=== PATIENT | male | born 1960 | race Caucasian/White ===

== ENCOUNTER 2022-08-12 16:27 | Outpatient (CLI) | payer BC, SELFPAY | END 2022-08-12 16:28 | disposition home or self-care (01) | PROVIDERS: PCP Family Medicine; Visit Provider Family Medicine | DX: E55.9 Vitamin D deficiency, unspecified (principal); E78.5 Hyperlipidemia, unspecified; I10 Essential (primary) hypertension; R30.0 Dysuria; Z12.5 Encounter for screening for malignant neoplasm of prostate; E11.9 Type 2 diabetes mellitus without complications | CPT/HCPCS: 80048; 80061; 84153 ==

== ENCOUNTER 2023-09-20 09:51 | Outpatient (CLI) | payer BC, SELFPAY | END 2023-09-20 09:52 | disposition home or self-care (01) | PROVIDERS: PCP Family Medicine; Visit Provider Family Medicine | DX: Z00.00 Encounter for general adult medical examination without abnormal findings (principal); E55.9 Vitamin D deficiency, unspecified; E11.9 Type 2 diabetes mellitus without complications; I10 Essential (primary) hypertension; E66.09 Other obesity due to excess calories; Z12.5 Encounter for screening for malignant neoplasm of prostate | CPT/HCPCS: 80048; 80061; G0103 ==

== ENCOUNTER 2023-10-23 06:26 | Outpatient (CLI) | payer BC, SELFPAY ==
--- NOTE | 2023-10-23 08:19 | W.ANESCHARGE ---
Anesthesia Charges Start Date/Time Anesthesia Start Date: 10/23/23 Anesthesia Start Time: 07:29 Stop Date/Time Anesthesia Stop Date: 10/23/23 Anesthesia Stop Time: 08:12
--- NOTE | 2023-10-23 09:45 | W.ANESCHARGE ---
Anesthesia Charges Start Date/Time Anesthesia Start Date: 10/23/23 Anesthesia Start Time: 07:29 Stop Date/Time Anesthesia Stop Date: 10/23/23 Anesthesia Stop Time: 08:12
== END 2023-10-23 06:27 | disposition home or self-care (01) ==
LOC: OP CLINIC 06:27
PROVIDERS: PCP Family Medicine; Visit Provider Surgery
DX: K63.5 Polyp of colon (principal); K62.1 Rectal polyp; Z86.010 Personal history of colon polyps
CPT/HCPCS: 00811; 45385; 88305; J2704

== ENCOUNTER 2024-09-23 16:12 | Outpatient (CLI) | payer BC, SELFPAY | END 2024-09-23 16:13 | disposition home or self-care (01) | PROVIDERS: PCP Family Medicine; Visit Provider Family Medicine | DX: I10 Essential (primary) hypertension (principal) | CPT/HCPCS: 80048; 80061 ==

== ENCOUNTER 2024-10-02 17:07 | Outpatient (CLI) | payer BC, SELFPAY ==
--- NOTE | 2024-10-02 17:30 | CRLHL7_ITS ---
For Patients: As a result of the 21st Century Cures Act, medical imaging exams and procedure reports are released immediately into your electronic medical record. You may view this report before your referring provider. If you have questions, please contact your health care provider. CLINICAL INDICATION: Right knee pain. COMPARISON STUDIES: Radiographs from 09/23/2024. TECHNICAL: Noncontrast MRI of the right knee. 1.5 charlene MRI scanner. Axial, sagittal and coronal T1, PD, PD FS and T2 FS images. FINDINGS: Examination is limited by motion artifact. MEDIAL COMPARTMENT: Medial Meniscus: On sagittal T2 fat-sat images number 23 and 24 of series 9, there appears to be focal undersurface meniscal signal abnormality involving the medial aspect of the posterior horn of the meniscus, suspicious for a small area of degenerative undersurface meniscal tearing. The motion artifact does limit meniscal assessment. Articular Cartilage: High-grade central medial femoral condyle articular cartilage wear (grade 3). Mild medial tibial plateau articular cartilage wear (grade 2). LATERAL COMPARTMENT: Lateral Meniscus: Intact. Articular Cartilage: Maintained. PATELLOFEMORAL COMPARTMENT: Articular Cartilage: Mild osteophyte formation. There is high-grade patellar articular cartilage wear (grade 3/4). Mild trochlear cartilage wear (grade 2). LIGAMENTS: Anterior Cruciate Ligament: Intact. Posterior Cruciate Ligament: Intact. MEDIAL COLLATERAL LIGAMENT AND POSTEROMEDIAL CORNER COMPLEX: Medial Collateral Ligament: Chronic thickening of the MCL as noted on coronal PD image number 21 of series 7 reflecting sequelae of remote sprain ligament scarring. Medial Head of the Gastrocnemius and Semimembranosus Tendons: Normal. LATERAL COLLATERAL LIGAMENT COMPLEX AND POSTEROLATERAL CORNER COMPLEX: Fibular Collateral Ligament: Normal. Distal Biceps Femoris Tendon Complex: Normal. Iliotibial Band: Normal. Popliteus Tendon: Normal. Posterolateral Corner Capsule: Normal. EXTENSOR MECHANISM: Distal Quadriceps Tendon: Intact. Patellar Tendon: Intact. Medial Patellar Retinaculum and Medial Patellofemoral Ligament: Intact. Lateral Patellar Retinaculum: Intact. Mild patella guera. Normal trochlear depth. Normal lateral trochlear inclination. JOINT SPACE AND CAPSULE: Moderate joint effusion. No joint bodies. BONES AND SOFT TISSUES: Mild bone marrow edema involving the medial aspect of the proximal tibia, without fracture. Small area of bone marrow edema involves the lateral femoral condyle adjacent to the intercondylar notch.Subcutaneous edema is present.No significant popliteal cyst. IMPRESSION: 1. Examination limited by motion artifact. 2. Degenerative arthrosis of the knee with high-grade cartilage wear within the medial (grade 3) and patellofemoral (grade 3/4) compartments. 3. Moderate joint effusion. 4. Findings suspicious for a small area of undersurface meniscal tearing involving the medial aspect of the posterior horn of the meniscus. The motion artifact makes the findings somewhat equivocal. 5. Remote MCL sprain with ligament scarring. 6. Mild patella guera. Dictated by Michael Lee MD @ 10/03/2024 3:23:20 PM (Electronically Signed)
== END 2024-10-02 17:08 | disposition home or self-care (01) ==
LOC: MRI 17:07
PROVIDERS: PCP Family Medicine; Visit Provider Family Medicine
DX: M25.561 Pain in right knee (principal); M17.11 Unilateral primary osteoarthritis, right knee; M25.461 Effusion, right knee; S83.241A Other tear of medial meniscus, current injury, right knee, initial encounter; S83.411A Sprain of medial collateral ligament of right knee, initial encounter
CPT/HCPCS: 73721

== ENCOUNTER 2024-11-21 07:04 | Outpatient (CLI) | payer BC, SELFPAY ==
--- NOTE | 2024-11-21 08:17 | P.ANES_ITS ---
Anesthesia Charges Start Date/Time Anesthesia Start Date: 11/21/24 Anesthesia Start Time: 07:55 Stop Date/Time Anesthesia Stop Date: 11/21/24 Anesthesia Stop Time: 08:16 Coding CPT Codes CPT Codes: ANES LWR INTST SCR COLSC - 05179 ([id number]) P3 - PATIENT W/SEVERE SYS DISEASE, QZ - ENDOSCOPE TECHNICIAN SVC W/O AERONAUTICAL ENGINEERING OFFICER BY
--- NOTE | 2024-11-21 08:17 | W.ANESCHARGE ---
Anesthesia Charges Start Date/Time Anesthesia Start Date: 11/21/24 Anesthesia Start Time: 07:55 Stop Date/Time Anesthesia Stop Date: 11/21/24 Anesthesia Stop Time: 08:16 Coding CPT Codes CPT Codes: ANES LWR INTST SCR COLSC - 72624 ([id number]) P3 - PATIENT W/SEVERE SYS DISEASE, QZ - EXPERIMENTAL FLIGHT TEST MECHANIC SVC W/O SAP PI ARCHITECT BY
== END 2024-11-21 07:05 | disposition home or self-care (01) ==
LOC: OP CLINIC 07:04
PROVIDERS: PCP Family Medicine; Visit Provider Internal Medicine
DX: Z12.11 Encounter for screening for malignant neoplasm of colon (principal); Z86.018 Personal history of other benign neoplasm
CPT/HCPCS: 00812; 45378; J2704